=== PATIENT | male | born 1980 | race Caucasian/White ===

== ENCOUNTER 2018-06-27 06:37 | Emergency (ER) | payer OTHER ==
[2018-06-27 06:43] VITALS: BP 132/79
--- NOTE | 2018-06-27 07:40 | ER Document Report ---
ED General - General Chief Complaint: Facial Injury Stated Complaint: CAT SCRATCH TO FACE Time Seen by Provider: 06/27/18 07:38 TRAVEL OUTSIDE OF THE [place] IN LAST 30 DAYS: No - HPI Notes: Patient is a 37-year-old male that presents to the emergency department for chief complaint of cat scratch to face. Patient states that around 4 AM he was scratched in the face by his cat. He is concerned that he may need stitches. It is a family pet. He does report a burning sensation where the scratches are. He denies any vision changes or involvement of his eye Past Medical History: GERD Past Surgical History: Negative Social History: Denies drugs alcohol and tobacco Family History: Reviewed and noncontributory for presenting illness Allergies: Reviewed, see documented allergy list. REVIEW OF SYSTEMS: CONSTITUTIONAL : No fever No chills No diaphoresis No recent illness EENT: No vision changes No congestion No sore throat CARDIOVASCULAR: No chest pain No palpitations RESPIRATORY: No shortness of breath No cough No difficulty breathing GASTROINTESTINAL: No abdominal pain No nausea No vomiting No diarrhea GENITOURINARY: No dysuria No hematuria No difficulty urinating MUSCULOSKELETAL: No back pain No leg pain No arm pain SKIN: No rashes Facial scratches LYMPHATIC: No swollen, enlarged glands. NEUROLOGICAL: No lightheadedness No headache No weakness No paresthesias PSYCHIATRIC: No anxiety No depression PHYSICAL EXAMINATION: Vital signs reviewed, nursing noted reviewed. GENERAL: Well-appearing, well-nourished and in no acute distress. HEAD: Atraumatic, normocephalic. EYES: Eyes appear normal, extraocular movements intact, sclera anicteric, conjunctiva are normal. ENT: nares patent, oropharynx clear without exudates. Moist mucous membranes. NECK: Normal range of motion, supple without lymphadenopathy LUNGS: Breath sounds clear to auscultation bilaterally and equal. No wheezes rales or rhonchi. HEART: Regular rate and rhythm without murmurs ABDOMEN: Soft, nontender, normoactive bowel sounds. No rebound, guarding, or rigidity. No masses appreciated. EXTREMITIES: Nontender, good range of motion, no pitting or edema. NEUROLOGICAL: No focal neurological deficits. Moves all extremities spontaneously Motor and sensory grossly intact on exam. PSYCH: Normal mood, normal affect. SKIN: Warm, Dry, normal turgor. Superficial linear abrasion to nasal bridge. 2.5 cm linear full-thickness laceration under left eye, no ductal involvement. No active bleeding. Superficial linear abrasion to right cheek with no active bleeding. - Related Data Allergies/Adverse Reactions: No Known Allergies Allergy (Verified 01/08/16 04:45) Past Medical History - Social History Smoking Status: Unknown if Ever Smoked Chew tobacco use (# tins/day): No Frequency of alcohol use: Occasional Drug Abuse: None Family History: Reviewed & Not Pertinent Patient has suicidal ideation: No Patient has homicidal ideation: No Renal/ Medical History: Denies: Hx Peritoneal Dialysis GI Medical History: Reports: Hx Gastroesophageal Reflux Disease Past Surgical History: Reports: Hx Orthopedic Surgery - extra toe at - Immunizations Immunizations up to date: Yes Hx Diphtheria, Pertussis, Tetanus Vaccination: Yes Physical Exam - Vital signs Vitals: Temp Pulse Resp BP Pulse Ox 97.5 F 64 17 132/79 H 95 06/27/18 06:42 06/27/18 06:42 06/27/18 06:42 06/27/18 06:42 06/27/18 06:42 Course - Re-evaluation Re-evalutation: 06/27/18 08:17 Vitals reviewed. Nursing notes reviewed. Patient had laceration under his left eye that required repair because of its proximity to the eye. I offered him sutures but he preferred glue. The wound was well approximated and glue is a reasonable plan of care. See procedure note. Patient was extensively counseled on infection and wound care. He was started on Augmentin for infection prophylaxis. He will follow with his PCP for wound reevaluation in a few days. He will return for new or worsening symptoms. Discharged home in stable condition. - Vital Signs Vital signs: Temp Pulse Resp BP Pulse Ox 97.5 F 64 17 132/79 H 95 06/27/18 06:42 06/27/18 06:42 06/27/18 06:42 06/27/18 06:42 06/27/18 06:42 Discharge - Discharge Clinical Impression: Cat scratch of face Qualifiers: Encounter type: initial encounter Qualified Code(s): S00.81XA - Abrasion of other part of head, initial encounter Condition: Stable Disposition: HOME, SELF-CARE Additional Instructions: Please return to the emergency department if you have any worsening, or concern of your symptoms. Please return to the emergency department if you develop chest pain, difficulty breathing, severe abdominal pain, or ongoing vomiting. Please follow-up with your primary care physician in 2-3 days and any other recommended physicians. If prescribed, take all medications as directed. If you have any questions or concerns do not hesitate to return the emergency department for evaluation. Keep the scratches clean by washing with warm soapy water 2-3 times daily. Return to the emergency room if you notice increased redness, swelling, pain or pus draining from the scratches. Prescriptions: Amox Tr/Potassium Clavulanate [Augmentin 875-125 Tablet] 1 tab PO BID 7 Days tablet Referrals: MARIE GU FNP-C [NURSE PRACTITIONER] - Follow up in 3-5 days
== END 2018-06-27 08:19 | disposition home or self-care (01) ==
LOC: ER 06:37
DX: S00.81XA Abrasion of other part of head, initial encounter (principal); W55.03XA Scratched by cat, initial encounter
CPT/HCPCS: 99282

== ENCOUNTER 2019-06-24 11:47 | Emergency (ER) | payer OTHER ==
--- NOTE | 2019-06-24 13:04 | ER Document Report ---
ED Medical Screen (RME) - General Chief Complaint: Groin Pain Stated Complaint: GROIN PAIN Time Seen by Provider: 06/24/19 13:01 Mode of Arrival: Ambulatory Information source: Patient Notes: 38-year-old male presents to ED for complaint of left groin Wednesday. He states there is no swelling there is no bleeding from his penis there is no penile discharge he is just got pain in his left groin area. He does have a history of kidney stones but no flank pain. He states he does not smoke or do drugs but he does occasionally drink. Patient is alert oriented respirations regular nonlabored speaking in full sentences walks with even steady gait. I have greeted and performed a rapid initial assessment of this patient. A comprehensive ED assessment and evaluation of the patient, analysis of test results and completion of medical decision making process will be conducted by an additional ED providers. TRAVEL OUTSIDE OF THE [place] IN LAST 30 DAYS: No - Related Data Allergies/Adverse Reactions: No Known Allergies Allergy (Verified 06/24/19 13:01) Past Medical History Renal/ Medical History: Denies: Hx Peritoneal Dialysis GI Medical History: Reports: Hx Gastroesophageal Reflux Disease Past Surgical History: Reports: Hx Orthopedic Surgery - extra toe at - Immunizations Immunizations up to date: Yes Hx Diphtheria, Pertussis, Tetanus Vaccination: Yes Physical Exam - Vital signs Vitals: Temp Pulse Resp BP Pulse Ox 97.7 F 62 18 139/79 H 100 06/24/19 12:45 06/24/19 12:45 06/24/19 12:45 06/24/19 12:45 06/24/19 12:45 Course - Vital Signs Vital signs: Temp Pulse Resp BP Pulse Ox 97.7 F 62 18 139/79 H 100 06/24/19 12:45 06/24/19 12:45 06/24/19 12:45 06/24/19 12:45 06/24/19 12:45
[2019-06-24 13:42] LABS: APPEARANCE,URINE CLEAR; BILIRUBIN,URINE NEGATIVE (NEGATIVE); COLOR,URINE YELLOW; GLUCOSE, URINE NEGATIVE (NEGATIVE); KETONES,URINE NEGATIVE (NEGATIVE); PROTEIN,URINE NEGATIVE (NEGATIVE); URINE SPECIFIC GRAVITY 1.016; UROBILINOGEN,URINE NEGATIVE mg/dL (<2.0)
--- NOTE | 2019-06-24 14:45 | RADIOLOGY REPORT (SQ) ---
EXAM DESCRIPTION: U/S SCROTUM W/O DOPPLER COMPLETED DATE/TIME: 06/24/2019 1:52 pm REASON FOR STUDY: Pain left groin since Wednesday COMPARISON: None. TECHNIQUE: Static and realtime barragan scale imaging of the scrotum and testes. Selected color Doppler and spectral images recorded to document blood flow. LIMITATIONS: None. FINDINGS: RIGHT: TESTICLE: Normal size. Normal echotexture. Normal blood flow. No mass. EPIDIDYMIS: Normal. HYDROCELE OR VARICOCELE: Small hydrocele. HERNIA OR EXTRA-TESTICULAR MASS: No. OTHER: No other significant finding. LEFT: TESTICLE: Normal size. Normal echotexture. Normal blood flow. No mass. EPIDIDYMIS: Normal. HYDROCELE OR VARICOCELE: Moderate hydrocele. Possible varicocele. HERNIA OR EXTRA-TESTICULAR MASS: No. OTHER: No abnormal sonographic findings in the left groin. IMPRESSION: MODERATE LEFT HYDROCELE. POSSIBLE LEFT VARICOCELE. OTHERWISE UNREMARKABLE SCROTAL ULTR ASOUND. NO EVIDENCE OF TESTICULAR MASS OR TORSION. TECHNICAL DOCUMENTATION: JOB ID: [id number] [employer]- All Rights Reserved Reading location - IP/workstation name: [email or web address]
--- NOTE | 2019-06-24 15:08 | ER Document Report ---
ED GI/ - General Chief Complaint: Groin Pain Stated Complaint: GROIN PAIN Time Seen by Provider: 06/24/19 13:01 Primary Care Provider: [facility] [Provider Group] - Follow up in 3-5 days (Call the office Wednesday morning to schedule an appointment.) Mode of Arrival: Ambulatory Information source: Patient Notes: This 38-year-old male patient comes to the emergency room with left groin pain since 06/20/2019. He reports the pain is in the left groin area and goes down into the testicle. It is made worse with walking and lifting. 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 He did go backpacking almost 2 weeks ago and walk a long way at that time. There is been no injury. There is no fever, there is no dysuria, there is no pain into the back. TRAVEL OUTSIDE OF THE [place] IN LAST 30 DAYS: No - Related Data Allergies/Adverse Reactions: No Known Allergies Allergy (Verified 06/24/19 13:01) Home Medications: ranitidine Past Medical History - General Information source: Patient - Social History Smoking Status: Never Smoker Cigarette use (# per day): No Chew tobacco use (# tins/day): No Smoking Education Provided: No Frequency of alcohol use: Occasional Drug Abuse: None Occupation: Gunsmith Lives with: Family, Spouse/Significant other Family History: Reviewed & Not Pertinent Patient has suicidal ideation: No Patient has homicidal ideation: No GI Medical History: Reports: Hx Gastroesophageal Reflux Disease Past Surgical History: Reports: Hx Orthopedic Surgery - extra toe at - Immunizations Immunizations up to date: Yes Hx Diphtheria, Pertussis, Tetanus Vaccination: Yes Review of Systems - Review of Systems Constitutional: No symptoms reported EENT: No symptoms reported Cardiovascular: No symptoms reported Respiratory: No symptoms reported Gastrointestinal: No symptoms reported Genitourinary: See HPI Male Genitourinary: See HPI Musculoskeletal: No symptoms reported Skin: No symptoms reported Hematologic/Lymphatic: No symptoms reported Neurological/Psychological: No symptoms reported Physical Exam - Vital signs Vitals: Temp Pulse Resp BP Pulse Ox 97.7 F 62 18 139/79 H 100 06/24/19 12:45 06/24/19 12:45 06/24/19 12:45 06/24/19 12:45 06/24/19 12:45 Interpretation: Normal - General General appearance: Appears well, Alert In distress: None - HEENT Head: Normocephalic, Atraumatic Eyes: Normal Pupils: PERRL - Respiratory Respiratory status: No respiratory distress - Cardiovascular Rhythm: Regular - Abdominal Inspection: Normal Bowel sounds: Normal Tenderness: Nontender - There is no tenderness to palpate the left lower quadrant of the abdomen. - Genitourinary Inspection: Other - Left scrotal swelling without erythema Tenderness: Other - The left scrotum and testicle is swollen and a little tender to palpate. The epididymis does not appear to be enlarged or tender. The spermatic cord is not tender. A finger inserted to the inguinal ring is not tender, and there is no hernia with Valsalva. The exam is most consistent with a hydrocele. - Back Back: Normal - Extremities General upper extremity: Normal inspection General lower extremity: Normal inspection - Neurological Neuro grossly intact: Yes - Psychological Associated symptoms: Normal affect, Normal mood - Skin Skin Temperature: Warm Skin Moisture: Dry Skin Color: Normal Course - Vital Signs Vital signs: Temp Pulse Resp BP Pulse Ox 97.7 F 62 18 139/79 H 100 06/24/19 12:45 06/24/19 12:45 06/24/19 12:45 06/24/19 12:45 06/24/19 12:45 - Diagnostic Test Radiology reviewed: Image reviewed, Reports reviewed - Ultrasound shows a moderate left hydrocele, with possible varicocele. There is a very small hydrocele on the right side. Discharge - Discharge Clinical Impression: Hydrocele Qualifiers: Hydrocele type: unspecified Qualified Code(s): N43.3 - Hydrocele, unspecified Condition: Stable Disposition: HOME, SELF-CARE Additional Instructions: Hydrocele You have been diagnosed as having a hydrocele. The sac that holds the testicles is called the scrotum. A hydrocele is usually a painless collection of fluid in the membrane that covers the testicle(s). This may be present at or develop later on in life. The cause is usually unknown. In infants a hydrocele can be due to a miscommunication of the fluid surrounding the testes. In adults a hydrocele may form due to injury or inflammation of surrounding structures. Most hydroceles require no treatment, and usually resolve on their own. However, sometimes surgical intervention is recommended for recurrent, or for unusually large hydroceles. The surgery to fix a hydrocele is a minor procedure and usually takes about 1 and 1/2 hours. Use good scrotal support. Avoid heavy lifting and straining. Take ibuprofen 800 mg every 8 hours for pain control. Follow-up with Maria Teresa Perryy--call the office on Wednesday to schedule an appointment. RETURN TO THE EMERGENCY ROOM IF ANY NEW OR WORSENING SYMPTOMS. Referrals: [facility] [Provider Group] - Follow up in 3-5 days (Call the office Wednesday to schedule an appointment.)
[2019-06-24 15:29] VITALS: BP 113/78
== END 2019-06-24 15:34 | disposition home or self-care (01) ==
LOC: ER 11:47
DX: N43.3 Hydrocele, unspecified (principal); N50.89 Other specified disorders of the male genital organs; R10.32 Left lower quadrant pain; N50.812 Left testicular pain; X50.9XXA Other and unspecified overexertion or strenuous movements or postures, initial encounter
CPT/HCPCS: 76870; 81001; 99284